=== PATIENT | female | born 1985 | race Caucasian/White ===

== ENCOUNTER 2016-10-03 12:26 | Emergency (ER) | payer MEDICAID, OTHER ==
[2016-10-03 12:33] VITALS: BP 128/82; PULSE 82; RESP 16; TEMP 97.7; O2SAT 96
--- NOTE | 2016-10-03 13:16 | EDPHY ---
H & P Stated Complaint: Both ears plugged up& painful R>L;better after decongestant; has URI Time Seen by Provider: 10/03/16 12:54 HPI/ROS: CHIEF COMPLAINT: ear pain HISTORY OF PRESENT ILLNESS: Patient is a 30-year-old female who comes to the emergency department complaining of bilateral ear pain. She states that she has had a sinus infection for the last 10 days but over the last day and half is developed bilateral ear pain right greater than left. She states that it hurts especially when she lays flat. She had some improvement with Mucinex yesterday but woke up again this morning and pain. She has not had a fever. She has not had a cough. She has not had a sore throat. She denies chest pain or shortness of breath. No other significant past medical history. No dental pain, no pain with chewing. REVIEW OF SYSTEMS: Constitutional: denies: chills, fever, recent illness, recent injury EENTM: See HPI Respiratory: denies: cough, shortness of breath Cardiac: denies: chest pain, irregular heart rate, lightheadedness, palpitations Gastrointestinal/Abdominal: denies: abdominal pain, diarrhea, nausea, vomiting, blood streaked stools Genitourinary: denies: dysuria, frequency, hematuria, pain Musculoskeletal: denies: joint pain, muscle pain Skin: denies: lesions, rash, jaundice, bruising Neurological: denies: headache, numbness, paresthesia, tingling, dizziness, weakness Hematologic/Lymphatic: denies: blood clots, easy bleeding, easy bruising Immunologic/allergic: denies: HIV/AIDS, transplant EXAM: GENERAL: Well-appearing, well-nourished and in no acute distress. HEAD: Atraumatic, normocephalic. EYES: Pupils equal round and reactive to light, extraocular movements intact, sclera anicteric, conjunctiva are normal. ENT: TMs with purulent effusions bilaterally. Non erythematous, nares patent, oropharynx clear without exudates. Moist mucous membranes. Sinus tenderness frontal and maxillary NECK: Normal range of motion, supple without lymphadenopathy or JVD. LUNGS: Breath sounds clear to auscultation bilaterally and equal. No wheezes rales or rhonchi. HEART: Regular rate and rhythm without murmurs, rubs or gallops. ABDOMEN: Soft, nontender, normoactive bowel sounds. No guarding, no rebound. No masses appreciated. BACK: No CVA tenderness, no spinal tenderness, step-offs or deformities EXTREMITIES: Normal range of motion, no pitting or edema. No clubbing or cyanosis. NEUROLOGICAL: Cranial nerves II through XII grossly intact. Normal speech, normal gait. 5/5 strength, normal movement in all extremities, normal sensation PSYCH: Normal mood, normal affect. SKIN: Warm, dry, normal turgor, no visible rashes or lesions. Source: Patient Exam Limitations: No limitations - Personal History LMP (Females 10-55): 22-28 Days Ago Current Tetanus Diphtheria and Acellular Pertussis (TDAP): Yes Tetanus Vaccine Date: 2006 - Medical/Surgical History Hx Asthma: No Hx Chronic Respiratory Disease: No Hx Diabetes: No Hx Cardiac Disease: No Hx Renal Disease: No Hx Cirrhosis: No Hx Alcoholism: No Other PMH: PS - Family History Significant Family History: No pertinent family hx - Social History Smoking Status: Never smoked Alcohol Use: Sober Drug Use: None Constitutional: Initial Vital Signs Temperature (C) 36.5 C 10/03/16 12:29 Heart Rate 82 10/03/16 12:29 Respiratory Rate 16 10/03/16 12:29 Blood Pressure 128/82 H 10/03/16 12:29 O2 Sat (%) 96 10/03/16 12:29 O2 Delivery Mode Room Air Allergies/Adverse Reactions: No Known Allergies Allergy (Verified 10/03/16 12:33) Home Medications: Medication Instructions Recorded lamoTRIgine [Lamictal] 100 mg PO 11/30/10 Amphet Asp and D/Amphet [Adderall 10 mg PO 10/03/16 10 MG (*)] Azithromycin [Zithromax] 250 mg PO DAILY #6 tab 10/03/16 clonazePAM [Klonopin (*)] 0.5 mg PO 10/03/16 Medical Decision Making ED Course/Re-evaluation: She has bilateral tympanic membrane effusions but no erythema or sign of infection. She clearly has a sinus infection which may be viral or bacterial. She has not had a fever. I suggested that it is likely viral in we discussed [id number] treatments including Afrin, Sudafed, guaifenesin and cetera. She is happy with this plan and will continue. She wanted to make sure that she did not have any ear infection. We did agree to prescribe a Z-Maurizio that she may begin taking if her symptoms are not improving with [id number] medications or she develops a fever or feels worse. Differential Diagnosis: Partial list of the Differential diagnosis considered include but were not limited to; sinusitis, otitis media, upper respiratory tract infection and although unlikely based on the history and physical exam, I also considered pneumonia, meningitis, sepsis, abscess. I discussed these differential diagnoses and the plan with the patient as well as the usual and expected course. The patient understands that the diagnosis is provisional and that in medicine we are not always correct and that further workup is often warranted. Usual and customary warnings were given. All of the patient's questions were answered. The patient was instructed to return to the emergency department should the symptoms at all worsen or return, otherwise to followup with the physician as we discussed. Departure - Departure Disposition: Home, Routine, Self-Care Clinical Impression: Sinusitis, acute maxillary Qualifiers: Recurrence: non-recurrent Qualified Code(s): J01.00 - Acute maxillary sinusitis , unspecified Condition: Fair Instructions: Sinusitis (ED) Additional Instructions: Use Afrin or Sudafed as discussed to help with sinus drainage. Referrals: NONE *PRIMARY CARE P,. [Primary Care Provider] - As per Instructions Jose Armando Scott MD [[facility] [place]] - As per Instructions Prescriptions: Azithromycin [Zithromax] 250 mg PO DAILY #6 tab
== END 2016-10-03 13:26 | disposition home or self-care (01) ==
DX: J01.00 Acute maxillary sinusitis, unspecified (principal)